=== PATIENT | female | born 1955 | race Caucasian/White ===

== ENCOUNTER 2023-01-29 07:19 | Outpatient (CLI) | payer OTHER ==
[~2023-01-29 07:19] MED LIST: TYLENOL-CODEINE1 TAB PO
== END 2023-01-29 07:22 | disposition home or self-care (01) ==
LOC: NUCLEAR 07:19
PROVIDERS: ATTEND Internal Medicine Cardiovascular Disease
DX: I25.119 Atherosclerotic heart disease of native coronary artery with unspecified angina pectoris (principal); R07.9 Chest pain, unspecified
CPT/HCPCS: 78452; 93017; A9500